=== PATIENT | male | born 1975 | race Caucasian/White ===

== ENCOUNTER 2024-06-28 10:48 | Emergency (ER) | payer OTHER ==
--- NOTE | 2024-06-28 11:50 | RAD REPORT ---
Procedure: Chest Single View HISTORY: Chest pain COMPARISON: 2017 FINDINGS: The lungs appear clear of acute infiltrate. No significant pleural effusion noted. The heart is normal size. IMPRESSION: No acute abnormality is displayed.
--- NOTE | 2024-06-28 11:52 | RAD REPORT ---
EXAMINATION: Lumbar Spine 3 Views CLINICAL INDICATION: Back pain FINDINGS: No fracture or dislocation seen. Mild spondylosis involves the lumbar spine.
--- NOTE | 2024-06-28 11:53 | RAD REPORT ---
Exam:C Spine Ap/Lat CLINICAL INDICATION: Neck pain Findings: No fracture or dislocation seen.
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
[2024-06-28 13:03] VITALS: TEMP 98.7; O2SAT 98
== END 2024-06-28 12:55 | disposition home or self-care (01) ==
LOC: ER 10:48
DX: S13.8XXA Sprain of joints and ligaments of other parts of neck, initial encounter (principal); M54.50 Low back pain, unspecified; I10 Essential (primary) hypertension
CPT/HCPCS: 71045; 72040; 72100; 99281

== ENCOUNTER 2024-07-06 10:11 | Emergency (ER) | payer OTHER ==
[2024-07-06] MEDS ORDERED: HYDROCODONE/APAP 5/325 MG TAB ONE (10:53)
[2024-07-06] MEDS ORDERED: DIAZEPAM 5 MG TABLET ONE (10:54)
[2024-07-06] MEDS ORDERED: dexAMETHasone 10 MG/ML VIAL ONE (12:42)
[2024-07-06] MEDS ORDERED: KETOROLAC 30 MG/ML INJ ONE (12:42)
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
[2024-07-06 13:47] VITALS: BP 111/77; TEMP 96.8; O2SAT 94
== END 2024-07-06 13:23 | disposition home or self-care (01) ==
LOC: ER 10:11
DX: M54.50 Low back pain, unspecified (principal); V29.498A Other motorcycle driver injured in collision with other motor vehicles in traffic accident, initial encounter
CPT/HCPCS: 96372; 99284; J1100

== ENCOUNTER 2024-07-10 15:18 | Emergency (ER) | payer OTHER ==
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
[2024-07-10 17:58] VITALS: BP 161/103; TEMP 97.3; O2SAT 97
== END 2024-07-10 17:50 | disposition home or self-care (01) ==
LOC: ER 15:18
DX: M62.830 Muscle spasm of back (principal); G89.11 Acute pain due to trauma
CPT/HCPCS: 99283